=== PATIENT | male | born 1970 | race Caucasian/White ===

== ENCOUNTER 2023-08-08 10:31 | Emergency (ER) | payer OTHER, SELFPAY ==
[2023-08-08] VITALS (8 sets, daily range): BP systolic 130–200; BP diastolic 67–112; PULSE 115–131; RESP 26–28; O2SAT 98–100
--- NOTE | 2023-08-08 | XRR_ITS ---
PROCEDURE INFORMATION: Exam: XR Chest Exam date and time: 08/08/2023 11:57 AM Age: 53 years old Clinical indication: Device placement; Ett placement (vent status); Additional info: Et tube TECHNIQUE: Imaging protocol: Radiologic exam of the chest. Views: 1 view. COMPARISON: 1. CR XR chest 1V portable [id number] 08/08/2023 11:[address] cervical spin wo con* [id number] 08/08/2023 10:44 AM FINDINGS: Tubes, catheters and devices: Endotracheal tube terminates nearly 7 cm above the domenica, level of the superior clavicular heads. Enteric tube terminates in the stomach. Lungs: Pulmonary hypoinflation with associated bronchovascular crowding. No consolidation. Mild linear atelectasis versus scarring in the left lower lung. Pleural spaces: Unremarkable. No pleural effusion. No pneumothorax. Heart/Mediastinum: Unremarkable. No cardiomegaly. Bones/joints: Degenerative changes along the spine. XR/XR chest 1V portable [id number] IMPRESSION: 1. Support structures as above. 2. Pulmonary hypoinflation without acute findings.
--- NOTE | 2023-08-08 10:35 | CT_ITS ---
WS: [id number] CT HEAD TECHNIQUE: Noncontrast CT of the head obtained from the skullbase to the vertex. CLINICAL INFORMATION: weakness COMPARISON: None. DLP: 2307.[address] scans at [facility] use at least one of these dose optimization techniques: automated e xposure control; mA and/or kV adjustment per patient size (includes targeted exams where dose is matc hed to clinical indication); or iterative reconstruction. FINDINGS: Intraparenchymal and intraventricular hematoma centered in the RIGHT thalamus and midbrain with local ized mass effect. Hematoma extends into the third ventricle and inferiorly into the RIGHT greater carolyn n LEFT ambient cisterns and fourth ventricle. Filling of the fourth ventricle with dilatation. Mass e ffect on the midbrain and lucy. Suprasellar cistern remains patent. Effacement of the quadrigeminal p late cistern and aqueduct. Blood products extend through the fourth ventricle outlet foramen. Mild hy drocephalus. Diffuse intracranial edema with effacement of the overlying sulci. Maradiaga-white differenti ation appears preserved. Benign basal ganglia calcifications. Paranasal sinuses are well aerated. Mastoid air cells are well aerated. Field impression IMPRESSION: 1. Intraparenchymal hematoma appears centered in the RIGHT thalamus and RIGHT midbrain with intraven tricular extension of blood products. Hematoma fills the fourth ventricle with inferior extension. 2. Mild hydrocephalus. 3. Intraventricular hematoma extends superiorly to involve the third ventricle with filling of the R IGHT ambient cistern and quadrigeminal plate cistern. Ventral mass effect on the lucy and midbrain. 4. Diffuse supratentorial intracranial edema with effacement of the overlying sulci. Maradiaga-white diff erentiation appears preserved. 5. Filling of the fourth ventricle with hematoma extending through the outlet foramina.
--- NOTE | 2023-08-08 10:35 | ECG_ITS ---
[facility] Test Date: 2023-08-08 Pat Name: Nakul Chambers Department: Room: Gender: Male Public School Teacher: : 1970 Requested By: Jermain Umanzor Order Number: [id number] Isabela MD: Josh Patel M.D. Measurements Intervals Combined [place]ocks Rate: 124 P: 51 CT: 177 QRS: 44 QRSD: 125 T: 74 QT: 322 QTc: 463 Interpretive Statements SINUS TACHYCARDIA RIGHT BUNDLE BRANCH BLOCK [120+ ms QRS DURATION, UPRIGHT V1, 40+ ms S IN I/aVL/V4/V5/V6] No previous ECG available for comparison Electronically Signed On 08-08-2023 15:28:42 MECHANICAL COMMISSIONING ENGINEER by Josh Patel M.D. [id number]
--- NOTE | 2023-08-08 10:38 | ED_ITS ---
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 This was observed by bystanders there was no reports of trauma prior to this. On arrival by EMS he was obtunded appeared to be seizing he was given Ativan and transferred to the emergency room on arrival here he has a few movements but nothing that seems purposeful. His pupils are pinpoint he does not respond to verbal or painful stimuli he is maintaining his airway and oxygenation status independently at this time. This happened just prior to arrival. Review of Systems 2 General: Reports: ROS unobtainable due to endotracheal tube and ROS unobtainable due to medical condition Physical Exam 2 HENMT: COMMON NORMALS: normocephalic and atraumatic HEAD & SCALP: n ormocephalic and atraumatic Resp: COMMON NORMALS: normal respiratory effort, No retractions, No use of accessory muscles and clear to auscultation bilaterally AUSCULTATION: clear to auscultation bilaterally Cardio: RATE: tachycardic HEART SOUNDS: no murmurs GI: COMMON NORMALS: Soft to palpation and No hepatosplenomegaly present A USCULTATION: Yes normoactive bowel sounds PALPATION: Yes Soft to palpation, No Tenderness to palpation present (GI), No Guarding due to palpation present (GI) and Yes No hepatosplenomegaly present Extremity: COMMON NORMALS: normal to inspection, capillary refill normal, no clubbing, cyanosis or edema, no calf tenderness and no pedal edema Skin: COMMON NORMALS: no rashes or lesions noted GENERAL SKIN EXAM: no rashes or lesions noted Procedures Intubation Time out performed: Yes sedative: Etomidate Mg Given: 40 paralytic: Succinylcholine Mg Given: 120 Laryngoscope: Powers ET Tube Size: 8.5 ET Tube Uncuffed: No Tube Secured Depth (cm): 24 Tube Placement Confirmation: visualized tube passing through cords, equal breath sounds bilaterally, no breath sounds over epigastrium and confirmation by capnometry Patient Tolerated Procedure: well Intubation Complications: none Course 2 Vital Signs: Vital signs: Vital Signs Pulse Rate 129 H 08/08/23 11:40 Respiratory Rate 28 H 08/08/23 11:16 Blood Pressure 133/67 08/08/23 11:40 Pulse Oximetry 99 08/08/23 11:40 Oxygen Delivery Me thod Mechanical Ventil ation 08/08/23 11:40 Oxygen Flow Rate 6 08/08/23 10:31 Fraction of Inspir ed Oxygen 40 08/08/23 11:16 MDM - General Adult Medical Decision Making Intracranial bleed with accelerated hypertension. Patient was intubated shortly after arrival. He is obtunded. He was started on propofol and nicardipine given TXA for the intracranial bleed. Unfortunately the blood. To be obstructing the cerebral aqueduct and the fourth ventricle completely. There is no sign dilation at this time. Blood pressure control was achieved after maximizing the nicardipine and propofol as well as giving hydralazine. He was switched from our ventilator to the ambulance ventilator and began overdriving the ventilator after reviewing all the settings and checking the depth of the ET tube to make sure he was not intubated in the right mainstem patient was paralyzed with vecuronium. Maintained his CO2 output by adjusting his respiratory rate. His PEEP on assist-control was approaching 20 on the vent even though it was set to be 5 this is likely due to his respiratory rate overdriving the ventilator. This was corrected with the paralytic and he has improved. He will be transferred via [facility] ambulance because of weather aircraft or not available. Discussed the patient with the ER doc on at [facility] as well as neurology who will consult neurosurgery. EMS was given extra IV drips of propofol and nicardipine, due to current weather conditions there is a likelihood that the drips currently hanging will be emptied before they arrive in [place]. I discussed with the family answered all questions. Medical Records I reviewed the patient's medical records. Lab Data I reviewed the patient's lab results. 08/08/23 10:16 08/08/23 10:16 Radiology Impressions Chest X-Ray 08/08/23 11:20 IMPRESSION: 1. Support structures as above. 2. Pulmonary hypoinflation without acute findings. Laboratory Results WBC 8.37 10^3/uL (3.29-11.43) 08/08/23 10:16 RBC 5.22 10^6/uL (3.85-5.65) 08/08/23 10:16 Hgb 16.60 g/dL (11.27-16.99) 08/08/23 10:16 Hct 50.6 % (37-53) 08/08/23 10:16 MCV 96.9 fl (82-101) 08/08/23 10:16 MCH 31.8 pg (27-33) 08/08/23 10:16 MCHC 32.8 g/dL (30-55) 08/08/23 10:16 RDW 12.1 % (12.1-15.1) 08/08/23 10:16 Plt Count 420 10^3/cmm (157-399) H 08/08/23 10:16 MPV 10.0 fL (7.4-10.4) 08/08/23 10:16 Neut % (Auto) 44.7 % 08/08/23 10:16 Lymph % (Auto) 41.5 % 08/08/23 10:16 Haakon % (Auto) 10.2 % 08/08/23 10:16 Eos % (Auto) 2.2 % 08/08/23 10:16 Baso % (Auto) 0.8 % 08/08/23 10:16 Neut # (Auto) 3.75 10^3/uL (1.8-7.7) 08/08/23 10:16 Lymph # (Auto) 3.5 10^3/uL (0.8-4.8) 08/08/23 10:16 Haakon # (Auto) 0.9 10^3/uL (0.2-0.9) 08/08/23 10:16 Eos # (Auto) 0.2 10^3/uL (0.0-0.8) 08/08/23 10:16 Baso # (Auto) 0.1 10^3/uL (0.0-0.1) 08/08/23 10:16 Nucleated RBC % (auto) 0 % 08/08/23 10:16 Nucleated RBCs # 0.0 /100WBC 08/08/23 10:16 Specimen Type Arterial 08/08/23 11:40 Sample Site Radial, right 08/08/23 11:40 ABG pH 7.43 (7.35-7.45) 08/08/23 11:40 ABG pCO2 34.8 mmHg (35-45) L 08/08/23 11:40 ABG pO2 86.3 mmHg (80.0-100.0) 08/08/23 11:40 ABG PO2/FiO2 Ratio 0 08/08/23 11:40 ABG HCO3 23.0 mmol/L (22-26) 08/08/23 11:40 ABG O2 Saturation 97.6 08/08/23 11:40 ABG Base Excess -0.7 mmol/L (-2.0-2.0) 08/08/23 11:40 Nav Test Pos 08/08/23 11:40 A-a O2 Gradient 20.0 mmHg (5-10) H 08/08/23 11:40 Hematocrit 47.2 % (42-52) 08/08/23 11:40 Hgb O2 Saturation 96.5 % (95-100) 08/08/23 11:40 Carboxyhemoglobin 0.6 %THgb (0.4-20.1) 08/08/23 11:40 Methemoglobin 0.6 % (0.4-1.5) 08/08/23 11:40 Total Hemoglobin 15.4 g/dL (14-18) 08/08/23 11:40 Sodium 138.0 mmol/L (131-143) 08/08/23 11:40 Potassium 4.1 mmol/L (3.5-5.0) 08/08/23 11:40 Glucose 115.0 mg/dL (70-115) 08/08/23 11:40 Ionized Calcium 1.1 mmol/L (1.1-1.4) 08/08/23 11:40 O2 Delivery Device Vent 08/08/23 11:40 FiO2 40.0 % 08/08/23 11:40 Tidal Volume 0.45 08/08/23 11:40 PEEP 5.0 cmH20 08/08/23 11:40 Career Technical Education Teacher ID [place] 08/08/23 11:40 Sodium 140 mmol/L (136-145) 08/08/23 10:16 Potassium 4.5 mmol/L (3.5-5.1) 08/08/23 10:16 Chloride 101 mmol/L (98-107) 08/08/23 10:16 Carbon Dioxide 23 mmol/L (22-29) 08/08/23 10:16 Anion Gap 20.5 (5-19) H 08/08/23 10:16 BUN 10 mg/dL (6-20) 08/08/23 10:16 Creatinine 0.8 mg/dL (0.7-1.2) 08/08/23 10:16 GFR Calculation 100.7 mL/min (90-130) 08/08/23 10:16 Glucose 142 mg/dL (65-115) H 08/08/23 10:16 Calculated Osmolality 291 mOsm/kg (285-295) 08/08/23 10:16 Calcium 9.9 mg/dL (8.5-10.5) 08/08/23 10:16 Total Bilirubin 0.4 mg/dL (0.15-1.2) 08/08/23 10:16 AST 35 U/L (0-40) 08/08/23 10:16 ALT 56 U/L (0-41) H 08/08/23 10:16 Alkaline Phosphatase 80 U/L (40-130) 08/08/23 10:16 Troponin T Baseline 7 ng/L (0-15) 08/08/23 10:16 Total Protein 8.1 g/dL (6.6-8.7) 08/08/23 10:16 Albumin 5.0 g/dL (3.5-5.2) 08/08/23 10:16 Globulin 3.1 g/dL (1.3-4.6) 08/08/23 10:16 Salicylates < 0.3 mg/dL (3-10) L 08/08/23 10:16 Acetaminophen < 5.0 ug/mL (10-30) L 08/08/23 10:16 Ethyl Alcohol < 10 mg/dL (0-10) 08/08/23 10:16 All radiology interpretation(s) finalized by discharge Critical Care Time 2 Critical Care Time: Critical Care Time: Yes Total Critical Care Time: 60 Attestation: The high probability of a clinically significant, sudden or life threatening deterioration of the patient's respiratory neurologic cardiovascular system(s) required my full and direct attention, intervention and personal management. The critical care time is as shown. This time is in addition to time spent performing any reported procedures but includes the following: [x] Data and vital sign review and interpretation [x] Patient assessment, examination and intervention [x] Documentation [x] Medication orders and management Discharge Plan Discharge Patient Disposition: Xfer Short-Term Hosp Clinical Impression: Intracranial hemorrhage, Accelerated hypertension Referrals: Yamil Wong MD [Physician] - Patient Instructions: Altered Mental Status (ED) Coding Level of Care Code ED Animal Groomer for Margarita Morales
--- NOTE | 2023-08-08 10:47 | CT_ITS ---
WS: [id number] CT CERVICAL TRAUMA TECHNIQUE: Noncontrast CT of the cervical spine with coronal and sagittal reformatted images. CLINICAL INFORMATION: trauma COMPARISON: None. DLP: [id number] scans at [facility] use at least one of these dose optimization techniques: automated e xposure control; mA and/or kV adjustment per patient size (includes targeted exams where dose is matc hed to clinical indication); or iterative reconstruction. FINDINGS: Moderate spondylitic changes. Prior postoperative changes ACDF C5-C7 with mild central canal stenosis at these levels.. Cervical curve convex LEFT. Normal craniocervical junction. Normal C1-C2 articulat ion. Dens is normal in appearance. Normal occipital condyles. Normal C1 ring. No evidence of acute fr acture or dislocation. Normal prevertebral soft tissues. Mastoids air cells are well aerated. Blood products visualized in the fourth ventricle described on t he head CT. IMPRESSION: No evidence of acute fracture or dislocation.
[2023-08-08] MEDS: etomidate 2 mg/mL INJ SDV 10 mL 40 MG IVP (10:52)
[2023-08-08] MEDS: succinylcholine 20 mg/mL SDV 10mL 120 MG IVP (10:53)
[2023-08-08] MEDS: propofol 10 mg/mL SDV 20 mL 100 MG IVP (10:54)
[2023-08-08 10:55] LABS: Basophils # 0.1 10^3/uL (0.0-0.1); Basophils % 0.8 %; Eosinophils # 0.2 10^3/uL (0.0-0.8); Eosinophils % 2.2 %; Hematocrit 50.6 % (37-53); Lymphocytes # 3.5 10^3/uL (0.8-4.8); Lymphocytes % 41.5 %; Mean Corpuscular HGB Conc 32.8 g/dL (30-55); Mean Corpuscular Hemoglobin 31.8 pg (27-33); Mean Corpuscular Volume 96.9 fl (82-101); Monocytes # 0.9 10^3/uL (0.2-0.9); Monocytes % 10.2 %; Neutrophils # 3.75 10^3/uL (1.8-7.7); Neutrophils % 44.7 %; Nucleated Red Blood Cells % 0 %; Platelet Count 420 10^3/cmm (157-399); Red Blood Count 5.22 10^6/uL (3.85-5.65); Red Cell Distribution Width 12.1 % (12.1-15.1); White Blood Count 8.37 10^3/uL (3.29-11.43)
--- NOTE | 2023-08-08 10:55 | PC.NURSE ---
PER VERBAL ORDERS FROM DR. MARES, 40MG OF ETOMIDATE, 100MG PROPOFOL, AND 120MG OF SUCC WERE ADMINISTERED FOR INTUBATION.
[2023-08-08 11:04] LABS: ABG PCO2 43.4 mmHg (35-45); ABG PH Result 7.35 (7.35-7.45); Arterial Blood Gas Hematocrit 49.7 % (42-52); Blood Gas Allen Test Pos; Blood Gas Operator Identificat WALCI; Blood Gas Sample Site Radial, right; Blood Gas Sample Type Arterial; Blood Gas Tidal Volume 0.45; Carboxyhemoglobin 0.4 %THgb (0.4-20.1); HCO3 ABG 23.8 mmol/L (22-26); HGB O2 Sat 98.8 % (95-100); Ionized Calcium Level - ABG 1.2 mmol/L (1.1-1.4); Methemoglobin 0.4 % (0.4-1.5); Oxygen Device VENT; Oxygen Saturation ABG 99.5; Potassium Level - ABG 4.4 mmol/L (3.5-5.0); Total Hemoglobin 16.2 g/dL (14-18)
[2023-08-08] MEDS: nicardipine 20 MG/200 ML PREMIX 50 MG IV (11:08)
[2023-08-08] MEDS: propofol 1,000 MG/100 ML INJ 24 MG IV (11:08)
[2023-08-08] MEDS: tranexamic acid 1,000 MG/100 ML PREMIX 600 MG IV (11:15)
[2023-08-08 11:20] LABS: Acetaminophen < 5.0 ug/mL (10-30); Alanine Aminotransferase 56 U/L (0-41); Alcohol Level < 10 mg/dL (0-10); Alkaline Phosphatase 80 U/L (40-130); Aspartate Amino Transferase 35 U/L (0-40); Blood Urea Nitrogen 10 mg/dL (6-20); Calcium 9.9 mg/dL (8.5-10.5); Carbon Dioxide 23 mmol/L (22-29); Chloride 101 mmol/L (98-107); Globulin 3.1 g/dL (1.3-4.6); Glomerular Filtration Rate 100.7 mL/min (90-130); Glucose 142 mg/dL (65-115); Osmolality Calculated 291 mOsm/kg (285-295); Salicylate < 0.3 mg/dL (3-10); Sodium 140 mmol/L (136-145); Total Bilirubin 0.4 mg/dL (0.15-1.2); Total Protein 8.1 g/dL (6.6-8.7); Troponin(5th) Baseline 7 ng/L (0-15)
--- NOTE | 2023-08-08 11:20 | XRR_ITS ---
PROCEDURE INFORMATION: Exam: XR Chest Exam date and time: 08/08/2023 11:19 AM Age: 53 years old Clinical indication: Cough and dyspnea; Additional info: Dyspnea/cough TECHNIQUE: Imaging protocol: Radiologic exam of the chest. Views: 1 view. COMPARISON: CT cervical spin wo con* [id number] 08/08/2023 10:44 AM FINDINGS: Tubes, catheters and devices: Endotracheal tube terminates 4 cm above the domenica. Enteric tube terminates in the stomach. Lungs: Pulmonary hypoinflation with associated bronchovascular crowding. No consolidation. Mild linear atelectasis versus scarring in the left lower lung. Pleural spaces: Unremarkable. No pleural effusion. No pneumothorax. Heart/Mediastinum: Unremarkable. No cardiomegaly. Bones/joints: Degenerative changes along the spine. XR/XR chest 1V portable [id number] IMPRESSION: 1. Support structures as above. 2. Pulmonary hypoinflation without acute findings.
[2023-08-08 11:21] LABS: Anion Gap 20.5 (5-19); Potassium 4.5 mmol/L (3.5-5.1)
[2023-08-08] MEDS: levETIRAcetam 1,000 MG/100 ML PREMIX 400 MG IV (11:25)
--- NOTE | 2023-08-08 11:38 | PC.NURSE ---
PER VERBAL ORDER FROM DR MARES, NICARDIPINE INCREASED TO 25MG/HR.
[2023-08-08] MEDS: hyDRALAzine 20 mg/mL INJ 1 mL IVP (11:40)
--- NOTE | 2023-08-08 11:50 | PC.NURSE ---
EMS ARRIVED. PT OFF VITAL SIGN MONITOR AT 1146.
[2023-08-08 11:51] LABS: ABG PCO2 34.8 mmHg (35-45); ABG PH Result 7.43 (7.35-7.45); Arterial Blood Gas Hematocrit 47.2 % (42-52); Base Excess ABG -0.7 mmol/L (-2.0-2.0); Blood Gas Allen Test Pos; Blood Gas Operator Identificat WALCI; Blood Gas Sample Site Radial, right; Blood Gas Sample Type Arterial; Blood Gas Tidal Volume 0.45; Carboxyhemoglobin 0.6 %THgb (0.4-20.1); HGB O2 Sat 96.5 % (95-100); Ionized Calcium Level - ABG 1.1 mmol/L (1.1-1.4); Methemoglobin 0.6 % (0.4-1.5); Oxygen Device VENT; Oxygen Saturation ABG 97.6; PO2 ABG 86.3 mmHg (80.0-100.0); PO2 FiO2 Ratio Arterial Blood 0; Potassium Level - ABG 4.1 mmol/L (3.5-5.0); Total Hemoglobin 15.4 g/dL (14-18)
[2023-08-08] MEDS: vecuronium 10 mg SDV IVP (11:52)
--- NOTE | 2023-08-08 12:00 | PC.NURSE ---
EMS SENT WITH 1 BAG NICARDIPINE AND 1 VIAL OF PROPOFOL.
== END 2023-08-08 12:10 | disposition short-term general hospital (02) ==
PROVIDERS: Emergency Provider Family Medicine; PCP Family Medicine
DX: I62.9 Nontraumatic intracranial hemorrhage, unspecified (principal); I10 Essential (primary) hypertension
CPT/HCPCS: 31500; 36600; 51702; 70450; 71045; 72125; 80051; 80053; 80307; 82330; 82805; 84484; 85025; 93005; 94002; 94799; 96365; 96367; 96375; 99291; J0330; J0360; J1953; J2704; J3490